=== PATIENT | female | born 1965 | race Caucasian/White ===

== ENCOUNTER → 2016-08-17 | Outpatient (CLI) | payer BC ==
[~2016-08-17] MED LIST: ASPI81TA28 PO; CRS/10 PO; HYDR12.55 PO; MULT-188 PO; OMEG10007 PO; WARF4TAB8 PO
--- NOTE | 2016-08-18 15:48 | MAMMOGRAPHY REPORT ---
BILATERAL DIGITAL SCREENING MAMMOGRAM TOMOSYNTHESIS WITH CAD: 08/17/2016 CLINICAL HISTORY: Routine screening. Patient has no complaints. TECHNIQUE: Breast tomosynthesis in addition to standard 2D mammography was performed. Current study was also evaluated with a Computer Aided Detection (CAD) system. COMPARISON: Prior outside mammograms dated 01/22/2015, 09/02/2013, 08/01/2012 from [facility]. BREAST COMPOSITION: There are scattered areas of fibroglandular density in both breasts. FINDINGS: No suspicious masses, calcifications, or areas of architectural distortion are noted in e ither breast. There has been no significant interval change compared to prior exams. IMPRESSION: ACR BI-RADS CATEGORY 1: NEGATIVE There is no mammographic evidence of malignancy. A 1 year screening mammogram is recommended. The p atient will receive written notification of the results. Approximately 10% of breast cancers are not detected with mammography. A negative mammographic repor t should not delay biopsy if a clinically suggestive mass is present. Jennifer Colindres M.D. ah/:08/18/2016 15:12:42 Watch Assembler: Mago EARL(R)(M), [facility] letter sent: Normal 1/2 BI-RADS Code: ACR BI-RADS Category 1: Negative
== END | disposition home or self-care (01) ==
LOC: C.MAMM 13:05
PROVIDERS: ATTEND Internal Medicine
DX: Z12.31 Encounter for screening mammogram for malignant neoplasm of breast (principal)

== ENCOUNTER → 2017-03-15 | Outpatient (CLI) | payer BC | END | disposition home or self-care (01) | LOC: C.LABSPEC 13:00 | PROVIDERS: ATTEND Internal Medicine | DX: Z12.11 Encounter for screening for malignant neoplasm of colon (principal) ==

== ENCOUNTER → 2017-06-01 | Outpatient (CLI) | payer BC ==
--- NOTE | 2017-06-01 14:52 | DIAGNOSTIC IMAGING REPORT ---
CHEST 2 VIEWS ROUTINE HISTORY: 52 years-old Female R05 [id number] acute cough COMPARISON: Chest radiograph 01/13/2016 TECHNIQUE: Frontal and lateral views of the chest FINDINGS: The cardiomediastinal and hilar silhouettes are within normal limits. Poststernotomy changes with cardiac valvular prosthesis. No pneumothorax, pleural effusion or focal airspace consolidation. No overt pulmonary edema. Bones are grossly intact. IMPRESSION: Postoperative changes without acute cardiopulmonary process. The above report was generated using voice recognition software. It may contain grammatical, syntax or spelling errors. Electronically signed by: Wilbert Gerber M.D. 06/01/2017 2:51 PM Dictated Date/Time: 06/01/2017 2:50 PM
[2017-06-01 14:53] LABS: BASO % 0.5 %; BASO ABS # 0.05 K/uL (0-0.2); COMPLETE YES; EOS % 1.1 %; HEMATOCRIT 39.7 % (37-47); IG% 0.4 %; LYMPH ABS # 2.95 K/uL (1.2-3.4); MEAN CELL VOLUME 87.6 fL (80-100); MEAN CORPUSCULAR HEMOGLOBIN 30.7 pg (25-34); MEAN PLATELET VOLUME 9.4 fL (7.4-10.4); MONO % 7.5 %; NEUT % 62.5 %; PLATELET COUNT 287 K/uL (130-400); RED BLOOD COUNT 4.53 M/uL (4.2-5.4); WHITE BLOOD COUNT 10.53 K/uL (4.8-10.8)
== END | disposition home or self-care (01) ==
LOC: C.RAD 13:51
PROVIDERS: ATTEND Internal Medicine
DX: R05 Cough (principal)

== ENCOUNTER → 2017-06-26 | Outpatient (CLI) | payer BC ==
[2017-06-26 09:41] LABS: INR 2.3 (0.9-1.1)
== END | disposition home or self-care (01) ==
LOC: C.LAB 07:19
PROVIDERS: ATTEND Internal Medicine Cardiovascular Disease
DX: Z95.2 Presence of prosthetic heart valve (principal); I48.2 Chronic atrial fibrillation; Z51.81 Encounter for therapeutic drug level monitoring; Z79.01 Long term (current) use of anticoagulants

== ENCOUNTER → 2017-10-05 | Outpatient (CLI) | payer BC | END | disposition home or self-care (01) | LOC: C.LABBFT 13:48 | PROVIDERS: ATTEND Physician Assistant Medical | DX: R10.9 Unspecified abdominal pain (principal) ==

== ENCOUNTER → 2017-10-10 | Outpatient (CLI) | payer BC ==
--- NOTE | 2017-10-10 09:24 | DIAGNOSTIC IMAGING REPORT ---
PELVIC COMPLETE NON OB CLINICAL HISTORY: R10.2 Pelvic painTRANSPELVIC AND TRANSVAGINAL. E X0D E [id number] PAIN COMPARISON STUDY: None FINDINGS: The uterus measured prior hysterectomy. The endometrial stripe measured prior hysterectomy. The right ovary measured 2.5 cm maximum dimension with normal vascular flow. The left ovary measured 1.8 cm maximum dimension with normal vascular flow. There is no ultrasonographic evidence of ovarian torsion. It should be noted that ovarian torsion can be present with normal Doppler ultrasonographic findings. There was no evidence of pathologic free pelvic fluid. IMPRESSION: Unremarkable exam post hysterectomy. The above report was generated using voice recognition software. It may contain grammatical, syntax or spelling errors. Electronically signed by: Devyn Morales M.D. 10/10/2017 9:22 AM Dictated Date/Time: 10/10/2017 9:21 AM
--- NOTE | 2017-10-10 09:45 | DIAGNOSTIC IMAGING REPORT ---
L-SPINE MIN 4 VIEWS ROUTINE HISTORY: 52 years-old Female R10.9 Right flank [id number] acute right-sided flank and right lower back pain COMPARISON: Chest radiographs 06/01/2017 TECHNIQUE: 5 views of the lumbar spine FINDINGS: Epicardial leads are noted. Probable phleboliths of the pelvis. Soft tissues are unremarkable. No spondylolysis or spondylolisthesis. No acute fracture, subluxation or significant intervertebral disc space narrowing. No significant endplate spurring or facet arthropathy identified. IMPRESSION: 1. No acute fracture or subluxation. 2. No significant degenerative changes identified. The above report was generated using voice recognition software. It may contain grammatical, syntax or spelling errors. Electronically signed by: Wilbert Gerber M.D. 10/10/2017 9:44 AM Dictated Date/Time: 10/10/2017 9:42 AM
--- NOTE | 2017-10-11 13:49 | DIAGNOSTIC IMAGING REPORT ---
PELVIC COMPLETE NON OB CLINICAL HISTORY: R10.2 Pelvic painTRANSPELVIC AND TRANSVAGINAL. E X0D E [id number] PAIN COMPARISON STUDY: None FINDINGS: The uterus measured prior hysterectomy. The endometrial stripe measured prior hysterectomy. The right ovary measured 2.5 cm maximum dimension with normal vascular flow. The left ovary measured 1.8 cm maximum dimension with normal vascular flow. There is no ultrasonographic evidence of ovarian torsion. It should be noted that ovarian torsion can be present with normal Doppler ultrasonographic findings. There was no evidence of pathologic free pelvic fluid. IMPRESSION: Unremarkable exam post hysterectomy. The above report was generated using voice recognition software. It may contain grammatical, syntax or spelling errors. Electronically signed by: Devyn Morales M.D. 10/10/2017 9:22 AM Dictated Date/Time: 10/10/2017 9:21 AM
== END | disposition home or self-care (01) ==
LOC: C.ULTR 08:30
PROVIDERS: ATTEND Physician Assistant Medical
DX: R10.2 Pelvic and perineal pain (principal); Z90.710 Acquired absence of both cervix and uterus